=== PATIENT | female | born 1995 | race Caucasian/White ===

== ENCOUNTER 2017-01-21 21:10 | Emergency (ER) | payer OTHER ==
[2017-01-21] MEDS ORDERED: ONDANSETRON 4MG/2ML VIAL (J2405) As Ordered ONE (21:33)
[2017-01-21] MEDS ORDERED: MORPHINE 4 MG/ML 1ML SYRINGE As Ordered ONE (21:33)
[2017-01-21 21:38] LABS: MEAN CORPUSCULAR HGB CONC 34.3 g/dl (32.0-36.5); MEAN CORPUSCULAR VOLUME 84.4 fl (80.0-96.0); RED CELL DISTRIBUTION WIDTH 11.8 % (11.5-14.5); WHITE BLOOD COUNT 13.9 K/mm3 (4.0-10.0)
--- NOTE | 2017-01-21 23:06 | EDDOCDS ---
Nurse's Notes [facility] Name: Flavia Menon Age: 21 yrs Sex: Female : 1995 Arrival Date: 01/21/2017 Time: 21:10 Bed 10 Private MD: Diagnosis: Threatened Presentation: 01/21 21:15 Presenting complaint: Patient states: that she is approx 6 weeks and has been ms18 having lower abd pain and vaginal bleeding for 2 days. Risk factors: The patient reports no loss of conciousness prior to arrival. This patient has not had a hysterectomy. This patient has not begun menopause. Adult Sepsis Screening: The patient does not have new or worsening altered mentation. Patient has a respiratory rate of greater than or equal to 22 (1 point). Systolic blood pressure is greater than 100. Patient has a qSOFA score of 1- Negative Sepsis Screen. Suicide/Homicide risk assessment- the patient denies having any suicidal and/or homicidal ideations and does not present with any other emotional, behavioral or mental health complaints. Status: Patient is not a deputy sheriff court services or dependent. Transition of care: patient was not received from another setting of care. 21:15 Acuity: ELSA Level 3 ms18 21:15 Method Of Arrival: Walkin/Carried/Asstd ms18 21:23 Red Flag criteria, patient assessed and taken directly to a bed. ms18 Triage Assessment: 21:22 General: Appears distressed, obese, uncomfortable, Behavior is appropriate for age, ms18 cooperative, crying. Pain: Location: pelvis Pain currently is 9 out of 10 on a pain scale. Pt Declines HIV testing. Neurological: No deficits noted. Respiratory: Airway is patent Respiratory effort is even, unlabored. : Reports vaginal bleeding that is bright red with clots heavy flow. Derm: Skin is pink, warm & dry. 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 Vitamin Oral tab 1 tab once daily - PMHx: none; - PSHx: none; - Social history: Smoking status: Patient states former smoker of tobacco. No barriers to communication noted, The patient speaks fluent Swazi. - Family history: Not pertinent. - : The pt / caregiver states he / she is not on anticoagulants. Home medication list is obtained from the patient. - Exposure Risk Screening:: None identified. Screenin:29 Screening information is obtained from the patient. Fall risk: No risks identified. jmb Assistance ADL's: requires no assistance with activities of daily living. Abuse/DV Screen: The patient / caregiver reports he/she is: not in a situation that causes fear, pain or injury. Nutritional screening: No deficits noted. home support is adequate. 23:02 Advance Directives: Currently, there is no health care proxy. There is no active DNR jmb order. There is no living will. There is no Power of Telecommunications Consultant. Assessment: 21:29 General: Appears uncomfortable, Behavior is restless. Pain: Location: pelvis Pain jmb currently is 9 out of 10 on a pain scale. Neurological: Level of Consciousness is awake, alert, obeys commands, Oriented to person, place, time, Lumber Grader are equal bilaterally Speech is normal, Facial symmetry appears normal, Facial symmetry: tongue is midline. Cardiovascular: Capillary refill < 3 seconds Heart tones S1 S2 present Pulses are all present. Rhythm is regular. Respiratory: Airway is patent Respiratory effort is even, unlabored, Respiratory pattern is regular, symmetrical, Breath sounds are clear bilaterally. GI: Abdomen is gravid Bowel sounds present X 4 quads. Abd is soft X 4 quads. Derm: Skin is pink, warm & dry. Musculoskeletal: Range of motion intact in all extremities. 21:56 General: Appears in no apparent distress, Behavior is appropriate for age, cooperative. jmb Neurological: Level of Consciousness is awake, alert, obeys commands, Oriented to person, place, time. Respiratory: Airway is patent Respiratory effort is even, unlabored, Respiratory pattern is regular, symmetrical. 22:47 General: Appears in no apparent distress, Behavior is appropriate for age, cooperative. jmb Neurological: Level of Consciousness is awake, alert, obeys commands, Oriented to person, place, time. Respiratory: Airway is patent Respiratory effort is even, unlabored, Respiratory pattern is regular, symmetrical. 23:02 General: Patient instructed on discharge instructions. Patient asked if there were any jmb questions regarding discharge, patient stated no. IV discontinued per hospital policy. Patient signed discharge instructions. Patient discharged in stable condition.. Vital Signs: 21:13 lr2 21:21 BP 177 / 99; Pulse 92; Resp 22; Pulse Ox 100% ; Weight 118.84 kg; Height 5 ft. 5 in. ms18 (165.10 cm); Pain 9/10; 23:02 BP 168 / 80; Pulse 94; Resp 22; Temp 98.9(O); Pulse Ox 100% on R/A; Pain 0/10; jmb 21:21 Body Mass Index 43.60 (118.84 kg, 165.10 cm) ms18 21:13 UNABLE TO GET VITALS AT THIS TIME, PT IS WALKING AROUND AND DOES NOT THINK SHE CAN SIT lr2 DOWN TO BE ABLE TO GET VITALS Vitals: 21:12 Log In Time: January 21, 2017 at 21:10. RN notified that patient meets Red Flag lr2 criteria. ED Course: 21:11 Patient visited by Stacy Medina. lr2 21:11 Patient moved to Waiting lr2 21:12 Vijay Bustillos FNP [facility]. ke 21:12 Patient visited by Vijay Bustillos FNP. ke 21:12 Patient moved to 10 km 21:13 Patient visited by Vijay Bustillos FNP. ke 21:17 Triage Initiated ms18 21:29 The patient / caregiver is instructed regarding the plan of care and ED course. dovb 21:29 Complete Blood Count Sent. dovb 21:29 Hcg, Serum Quantitative Sent. dovb 21:29 Type & Screen Sent. dovb 21:29 Inserted saline lock: 20 gauge in right antecubital area and blood collected. The b patient tolerated the procedure well. Labs drawn. (by ED staff). Sent per order to lab. 21:30 Patient visited by Be Bolanos RN. cecilia 21:43 [facility] Payment Agreement was scanned into [employer] and attached to record. ks16 21:57 Patient visited by Be Bolanos RN. jmb 21:59 Patient name changed from Flavia\S\\S\Giamella\S\ to Flavia\S\ \S\Giamella. EDMS 22:23 Patient visited by Vijay Bustillos FNP. ke 22:48 Patient visited by Be Bolanos RN. jmb 22:48 Cesar Polanco MD is Referral Physician. ke 23:02 Discontinued lock intact, bleeding controlled, pressure dressing applied, No jmb redness/swelling at site. No procedures done that require assistance. Administered Medications: 21:37 Drug: NS 0.9% 1000 ml [sodium chloride 0.9 % intravenous solution] Route: IV; Rate: jmb bolus; Site: right antecubital; 21:37 Drug: Ondansetron 4 mg [ondansetron HCl 2 mg/mL intravenous solution (2 mL)] Route: jmb IVP; Site: right antecubital; 21:37 Drug: morphine 4 mg [morphine 4 mg/mL intravenous cartridge (1 mL)] Route: IVP; Site: jmb right antecubital; Order Results: Lab Order: Complete Blood Count; SPEC'M 01/21/17 21: Test: WHITE BLOOD COUNT; Value: 13.9; Range: 4.0-10.0; Abnormal: Above high normal; Units: K/mm3; Status: F Test: RED BLOOD COUNT; Value: 4.46; Range: 4.00-5.40; Units: M/mm3; Status: F Test: HEMOGLOBIN; Value: 12.9; Range: 12.0-16.0; Units: g/dl; Status: F Test: HEMATOCRIT; Value: 37.6; Range: 36.0-47.0; Units: %; Status: F Test: MEAN CORPUSCULAR VOLUME; Value: 84.4; Range: 80.0-96.0; Units: fl; Status: F Test: MEAN CORPUSCULAR HEMOGLOBIN; Value: 29.0; Range: 27.0-33.0; Units: pg; Status: F Test: MEAN CORPUSCULAR HGB CONC; Value: 34.3; Range: 32.0-36.5; Units: g/dl; Status: F Test: RED CELL DISTRIBUTION WIDTH; Value: 11.8; Range: 11.5-14.5; Units: %; Status: F Test: PLATELET COUNT, AUTOMATED; Value: 228; Range: 150-450; Units: k/mm3; Status: F Lab Order: Hcg, Serum Quantitative; SPEC01/21/17 21:26 Test: HCG, SERUM QUANTITATIVE; Value: 5133; Units: MIU/ML; Status: F Test Note: ; GESTATIONAL AGE APPROXIMATE HCG RANGE (MIU/ML) 0.2-1 WEEK 5-50 1-2 WEEKS 50-500 2-3 WEEKS 100-5,000 3-4 WEEKS 500-10,000 4-5 WEEKS 1,000-50,000 5-6 WEEKS 10,000-100,000 6-8 WEEKS 15,000-200,000 2-3 MONTHS 10,000-100,000 NON FEMALES LESS THAN 3.0 Patient samples may contain human heterophilic antibodies that could react with immunoassays to give falsely elevated or depressed results. This assay has been designed to minimize interference from heterophilic antibodies. Elevated hCG levels have also been associated with trophoblastic disease and nontrophoblastic neoplasms. The possibility of having these diseases should be considered before a diagnosis of is made. This test is not intended for use as a surrogate marker for aiding in the diagnosis or monitoring the treatment of cancer patients. Siemens [place] methodology. Lab Order: Type & Screen; SPEC'M 01/21/17 21:26 Test: BLOOD TYPE; Value: O POS; Status: F Test: AB SCREEN (INDIRECT AFSHIN)VIS; Value: NEGATIVE; Status: F Outcome: 22:48 Discharge ordered by Provider. ke 23:02 Discharge Assessment: Patient awake, alert and oriented x 3. No cognitive and/or jmb functional deficits noted. Patient verbalized understanding of disposition instructions. Patient awake and alert. obeys commands, Oriented to person, place and time. Patient verbalized understanding of disposition instructions. Patient has no functional deficits. patient administered narcotics - yes. Pt provided with safe discharge. The following High Risk Discharge criteria are identified: None. Discharged to home ambulatory, with family. Condition: stable. Discharge instructions given to patient, Instructed on discharge instructions, follow up and referral plans. medication usage, Demonstrated understanding of instructions, medications, Pt was receptive of discharge instructions/ teaching. Prescriptions given X 1. Ultrasound Study completed. Property sent home with patient. 23:05 Patient left the ED. cecilia Signatures: Dispatcher [employer] EDMS Kelley Hwang, RN RN kmg1 Vijay Bustillos, DOCUMENT CONTROL ASSISTANT DOCUMENT CONTROL ASSISTANT Be Berry RN RN jmb Smith, Mallory, RN RN ms18 Rosa Hyman, Reg Reg ks16 Stacy Medina2 MTDD
--- NOTE | 2017-01-21 23:06 | EDDOCDS ---
Physician Documentation [facility] Name: Flavia Menon Age: 21 yrs Sex: Female : 1995 Arrival Date: 01/21/2017 Time: 21:10 Bed 10 Private MD: Disposition: 01/21/17 22:48 Discharged to Home/Self Care. Impression: Threatened . - Condition is Stable. - Discharge Instructions: Threatened Miscarriage. - Prescriptions for Zofran 4 mg Oral Tablet - take 1 tablet by ORAL route 4 times per day As needed; 10 tablet. - Medication Reconciliation, Local Pharmacy Hours, Work Release Form - 4 day form. - Follow up: Cesar Polanco MD; When: 2 - 3 days; Reason: Continuance of care. - Problem is new. - Symptoms are unchanged. - Notes: repeat hcg in 2 days Historical: - Allergies: no known allergies; - Home Meds: 1. Vitamin Oral tab 1 tab once daily - PMHx: none; - PSHx: none; - Social history: Smoking status: Patient states former smoker of tobacco. No barriers to communication noted, The patient speaks fluent Dutch. - Family history: Not pertinent. - : The pt / caregiver states he / she is not on anticoagulants. Home medication list is obtained from the patient. - Exposure Risk Screening:: None identified. 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 5 in. (165.10 cm); Pain 9/10; 23:02 BP 168 / 80; Pulse 94; Resp 22; Temp 98.9(O); Pulse Ox 100% on R/A; Pain 0/10; jmb 21:21 Body Mass Index 43.60 (118.84 kg, 165.10 cm) ms18 21:13 UNABLE TO GET VITALS AT THIS TIME, PT IS WALKING AROUND AND DOES NOT THINK SHE CAN SIT lr2 DOWN TO BE ABLE TO GET VITALS MDM: 21:18 IV Saline Lock ordered. ke 21:18 Undress patient appropriately for examination ordered. ke 21:18 NS 0.9% 1000 ml IV at bolus once ordered. ke 21:18 Ondansetron 4 mg IVP once ordered. ke 21:18 morphine 4 mg IVP once ordered. ke 21:19 Complete Blood Count Ordered. EDMS 21:19 Hcg, Serum Quantitative Ordered. EDMS 21:19 US 1st trimester Ordered. EDMS 21:19 Type & Screen Ordered. EDMS 21:41 Financial registration complete. ks16 21:43 [facility] Payment Agreement was scanned into [employer] and attached to record. ks16 22:45 Complete Blood Count Reviewed. ke 22:45 Hcg, Serum Quantitative Reviewed. ke 22:45 Type & Screen Reviewed. ke Administered Medications: 21:37 Drug: NS 0.9% 1000 ml [sodium chloride 0.9 % intravenous solution] Route: IV; Rate: jmb bolus; Site: right antecubital; 21:37 Drug: Ondansetron 4 mg [ondansetron HCl 2 mg/mL intravenous solution (2 mL)] Route: jmb IVP; Site: right antecubital; 21:37 Drug: morphine 4 mg [morphine 4 mg/mL intravenous cartridge (1 mL)] Route: IVP; Site: jmb right antecubital; Signatures: Dispatcher [employer] EDMS Vijay Bustillos, SEMICONDUCTOR PACKAGES PLATEMAKER SEMICONDUCTOR PACKAGES PLATEMAKER Be Berry RN RN jmb Smith, Mallory, RN RN ms18 Rosa Hyman, Reg Reg ks16 The chart was reviewed and I authenticate all verbal orders and agree with the evaluation and treatment provided.Attachments: 21:43 [facility] Payment Agreement ks16 MTDD
--- NOTE | 2017-01-21 23:10 | REPUSA ---
CLINICAL HISTORY: , bleeding TECHNIQUE: OB ultrasound COMPARISON: No study for comparison is available at the time of interpretation. Uterus: Normal without masses. Gestational sac is within the lower uterine segment Endometrial cavity : Gestational sac with yolk sac, without pole. Gestational sac measurements equate to 6 week 4 day gestation. Ovaries: Right ovary is not seen. Left ovary is normal. Pelvic fluid: None. IMPRESSION: Gestational sac at 6 weeks 4 days, with yolk sac but without pole. Gestational sac is within the low uterine segment. This is most likely to represent a nonviable . Recommende d close clinical correlation with serial beta hCG's to establish viability, and follow-up ultrasound if beta hCG's are increasing.
--- NOTE | 2017-01-24 00:06 | EDDOCDS ---
Physician Documentation [facility] Name: Flavia Menon Age: 21 yrs Sex: Female : 1995 Arrival Date: 01/21/2017 Time: 21:10 Bed 10 Private MD: Disposition: 01/21/17 22:48 Discharged to Home/Self Care. Impression: Threatened . - Condition is Stable. - Discharge Instructions: Threatened Miscarriage. - Prescriptions for Zofran 4 mg Oral Tablet - take 1 tablet by ORAL route 4 times per day As needed; 10 tablet. - Medication Reconciliation, Local Pharmacy Hours, Work Release Form - 4 day form. - Follow up: Cesar Polanco MD; When: 2 - 3 days; Reason: Continuance of care. - Problem is new. - Symptoms are unchanged. - Notes: repeat hcg in 2 days Historical: - Allergies: no known allergies; - Home Meds: 1. Vitamin Oral tab 1 tab once daily - PMHx: none; - PSHx: none; - Social history: Smoking status: Patient states former smoker of tobacco. No barriers to communication noted, The patient speaks fluent Sudanese. - Family history: Not pertinent. - : The pt / caregiver states he / she is not on anticoagulants. Home medication list is obtained from the patient. - Exposure Risk Screening:: None identified. 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 5 in. (165.10 cm); Pain 9/10; 23:02 BP 168 / 80; Pulse 94; Resp 22; Temp 98.9(O); Pulse Ox 100% on R/A; Pain 0/10; jmb 21:21 Body Mass Index 43.60 (118.84 kg, 165.10 cm) ms18 21:13 UNABLE TO GET VITALS AT THIS TIME, PT IS WALKING AROUND AND DOES NOT THINK SHE CAN SIT lr2 DOWN TO BE ABLE TO GET VITALS MDM: 21:18 IV Saline Lock ordered. ke 21:18 Undress patient appropriately for examination ordered. ke 21:18 NS 0.9% 1000 ml IV at bolus once ordered. ke 21:18 Ondansetron 4 mg IVP once ordered. ke 21:18 morphine 4 mg IVP once ordered. ke 21:19 Complete Blood Count Ordered. EDMS 21:19 Hcg, Serum Quantitative Ordered. EDMS 21:19 US 1st trimester Ordered. EDMS 21:19 Type & Screen Ordered. EDMS 21:41 Financial registration complete. ks16 21:43 [facility] Payment Agreement was scanned into [employer] and attached to record. ks 22:45 Complete Blood Count Reviewed. ke 22:45 Hcg, Serum Quantitative Reviewed. ke 22:45 Type & Screen Reviewed. 01/22 08:30 T-Sheet-- Draft Copy was scanned into [employer] and attached to record. [facility] 01/23 16:44 Radiology Report was scanned into [employer] and attached to record. kf3 Administered Medications: 01/21 21:37 Drug: NS 0.9% 1000 ml [sodium chloride 0.9 % intravenous solution] Route: IV; Rate: jmb bolus; Site: right antecubital; 21:37 Drug: Ondansetron 4 mg [ondansetron HCl 2 mg/mL intravenous solution (2 mL)] Route: jmb IVP; Site: right antecubital; 21:37 Drug: morphine 4 mg [morphine 4 mg/mL intravenous cartridge (1 mL)] Route: IVP; Site: jmb right antecubital; Signatures: Dispatcher [employer] EDMS Vijay Bustillos, DICTATING MACHINE TYPIST DICTATING MACHINE TYPIST Vamsi Chao, Reg Reg kf3 Be Bolanos RN RN jmb Smith, Mallory, RN RN ms18 Rosa Hyman, Reg Reg ks16 Cely Ortiz The chart was reviewed and I authenticate all verbal orders and agree with the evaluation and treatment provided.Attachments: 21:43 [facility] Payment Agreement 01/22 08:30 T-Sheet-- Draft Copy [facility] Chart Complete MTDD
--- NOTE | 2017-01-24 00:06 | EDDOCDS ---
Nurse's Notes [facility] Name: Flavia Menon Age: 21 yrs Sex: Female : 1995 Arrival Date: 01/21/2017 Time: 21:10 Bed 10 Private MD: Diagnosis: Threatened Presentation: 01/21 21:15 Presenting complaint: Patient states: that she is approx 6 weeks and has been ms18 having lower abd pain and vaginal bleeding for 2 days. Risk factors: The patient reports no loss of conciousness prior to arrival. This patient has not had a hysterectomy. This patient has not begun menopause. Adult Sepsis Screening: The patient does not have new or worsening altered mentation. Patient has a respiratory rate of greater than or equal to 22 (1 point). Systolic blood pressure is greater than 100. Patient has a qSOFA score of 1- Negative Sepsis Screen. Suicide/Homicide risk assessment- the patient denies having any suicidal and/or homicidal ideations and does not present with any other emotional, behavioral or mental health complaints. Status: Patient is not a interlibrary loan services librarian or dependent. Transition of care: patient was not received from another setting of care. 21:15 Acuity: ELSA Level 3 ms18 21:15 Method Of Arrival: Walkin/Carried/Asstd ms18 21:23 Red Flag criteria, patient assessed and taken directly to a bed. ms18 Triage Assessment: 21:22 General: Appears distressed, obese, uncomfortable, Behavior is appropriate for age, ms18 cooperative, crying. Pain: Location: pelvis Pain currently is 9 out of 10 on a pain scale. Pt Declines HIV testing. Neurological: No deficits noted. Respiratory: Airway is patent Respiratory effort is even, unlabored. : Reports vaginal bleeding that is bright red with clots heavy flow. Derm: Skin is pink, warm & dry. WARPMAN: 21:21 LMP 10/2016 ms18 Historical: - Allergies: no known allergies; - Home Meds: 1. Vitamin Oral tab 1 tab once daily - PMHx: none; - PSHx: none; - Social history: Smoking status: Patient states former smoker of tobacco. No barriers to communication noted, The patient speaks fluent Azerbaijani. - Family history: Not pertinent. - : The pt / caregiver states he / she is not on anticoagulants. Home medication list is obtained from the patient. - Exposure Risk Screening:: None identified. Screenin:29 Screening information is obtained from the patient. Fall risk: No risks identified. jmb Assistance ADL's: requires no assistance with activities of daily living. Abuse/DV Screen: The patient / caregiver reports he/she is: not in a situation that causes fear, pain or injury. Nutritional screening: No deficits noted. home support is adequate. 23:02 Advance Directives: Currently, there is no health care proxy. There is no active DNR jmb order. There is no living will. There is no Power of Rn Concurrent Review. Assessment: 21:29 General: Appears uncomfortable, Behavior is restless. Pain: Location: pelvis Pain jmb currently is 9 out of 10 on a pain scale. Neurological: Level of Consciousness is awake, alert, obeys commands, Oriented to person, place, time, Wood Tank Builder are equal bilaterally Speech is normal, Facial symmetry appears normal, Facial symmetry: tongue is midline. Cardiovascular: Capillary refill < 3 seconds Heart tones S1 S2 present Pulses are all present. Rhythm is regular. Respiratory: Airway is patent Respiratory effort is even, unlabored, Respiratory pattern is regular, symmetrical, Breath sounds are clear bilaterally. GI: Abdomen is gravid Bowel sounds present X 4 quads. Abd is soft X 4 quads. Derm: Skin is pink, warm & dry. Musculoskeletal: Range of motion intact in all extremities. 21:56 General: Appears in no apparent distress, Behavior is appropriate for age, cooperative. jmb Neurological: Level of Consciousness is awake, alert, obeys commands, Oriented to person, place, time. Respiratory: Airway is patent Respiratory effort is even, unlabored, Respiratory pattern is regular, symmetrical. 22:47 General: Appears in no apparent distress, Behavior is appropriate for age, cooperative. jmb Neurological: Level of Consciousness is awake, alert, obeys commands, Oriented to person, place, time. Respiratory: Airway is patent Respiratory effort is even, unlabored, Respiratory pattern is regular, symmetrical. 23:02 General: Patient instructed on discharge instructions. Patient asked if there were any jmb questions regarding discharge, patient stated no. IV discontinued per hospital policy. Patient signed discharge instructions. Patient discharged in stable condition.. Vital Signs: 21:13 lr2 21:21 BP 177 / 99; Pulse 92; Resp 22; Pulse Ox 100% ; Weight 118.84 kg; Height 5 ft. 5 in. ms18 (165.10 cm); Pain 9/10; 23:02 BP 168 / 80; Pulse 94; Resp 22; Temp 98.9(O); Pulse Ox 100% on R/A; Pain 0/10; jmb 21:21 Body Mass Index 43.60 (118.84 kg, 165.10 cm) ms18 21:13 UNABLE TO GET VITALS AT THIS TIME, PT IS WALKING AROUND AND DOES NOT THINK SHE CAN SIT lr2 DOWN TO BE ABLE TO GET VITALS Vitals: 21:12 Log In Time: January 21, 2017 at 21:10. RN notified that patient meets Red Flag lr2 criteria. ED Course: 21:11 Patient visited by Stacy Medina. lr2 21:11 Patient moved to Waiting lr2 21:12 [facility]ill[facility] ke 21:12 Patient visited by Vijay Bustillos FNP. ke 21:12 Patient moved to 10 km 21:13 Patient visited by Vijay Bustillos FNP. ke 21:17 Triage Initiated ms18 21:29 The patient / caregiver is instructed regarding the plan of care and ED course. dovb 21:29 Complete Blood Count Sent. dovb 21:29 Hcg, Serum Quantitative Sent. dovb 21:29 Type & Screen Sent. dovb 21:29 Inserted saline lock: 20 gauge in right antecubital area and blood collected. The b patient tolerated the procedure well. Labs drawn. (by ED staff). Sent per order to lab. 21:30 Patient visited by Be Bolanos RN. cecilia 21:43 [facility] Payment Agreement was scanned into [employer] and attached to record. ks16 21:57 Patient visited by Be Bolanos RN. jmb 21:59 Patient name changed from Flavia\S\\S\Giamella\S\ to Flavia\S\ \S\Giamella. EDMS 22:23 Patient visited by Vijay Bustillos FNP. ke 22:48 Patient visited by Be Bolanos RN. jmb 22:48 Cesar Polanco MD is Referral Physician. ke 23:02 Discontinued lock intact, bleeding controlled, pressure dressing applied, No jmb redness/swelling at site. No procedures done that require assistance. 23:23 US 1st trimester Returned. EDHI 01/22 08:30 T-Sheet-- Draft Copy was scanned into [employer] and attached to record. [facility] 01/23 16:44 Radiology Report was scanned into [employer] and attached to record. kf3 Administered Medications: 01/21 21:37 Drug: NS 0.9% 1000 ml [sodium chloride 0.9 % intravenous solution] Route: IV; Rate: jmb bolus; Site: right antecubital; 21:37 Drug: Ondansetron 4 mg [ondansetron HCl 2 mg/mL intravenous solution (2 mL)] Route: jmb IVP; Site: right antecubital; 21:37 Drug: morphine 4 mg [morphine 4 mg/mL intravenous cartridge (1 mL)] Route: IVP; Site: b right antecubital; Order Results: Lab Order: Complete Blood Count; SPEC'M 01/21/17 21:26 Test: WHITE BLOOD COUNT; Value: 13.9; Range: 4.0-10.0; Abnormal: Above high normal; Units: K/mm3; Status: F Test: RED BLOOD COUNT; Value: 4.46; Range: 4.00-5.40; Units: M/mm3; Status: F Test: HEMOGLOBIN; Value: 12.9; Range: 12.0-16.0; Units: g/dl; Status: F Test: HEMATOCRIT; Value: 37.6; Range: 36.0-47.0; Units: %; Status: F Test: MEAN CORPUSCULAR VOLUME; Value: 84.4; Range: 80.0-96.0; Units: fl; Status: F Test: MEAN CORPUSCULAR HEMOGLOBIN; Value: 29.0; Range: 27.0-33.0; Units: pg; Status: F Test: MEAN CORPUSCULAR HGB CONC; Value: 34.3; Range: 32.0-36.5; Units: g/dl; Status: F Test: RED CELL DISTRIBUTION WIDTH; Value: 11.8; Range: 11.5-14.5; Units: %; Status: F Test: PLATELET COUNT, AUTOMATED; Value: 228; Range: 150-450; Units: k/mm3; Status: F Lab Order: Hcg, Serum Quantitative; SPEC'M 01/21/17 21:26 Test: HCG, SERUM QUANTITATIVE; Value: 5133; Units: MIU/ML; Status: F Test Note: ; GESTATIONAL AGE APPROXIMATE HCG RANGE (MIU/ML) 0.2-1 WEEK 5-50 1-2 WEEKS 50-500 2-3 WEEKS 100-5,000 3-4 WEEKS 500-10,000 4-5 WEEKS 1,000-50,000 5-6 WEEKS 10,000-100,000 6-8 WEEKS 15,000-200,000 2-3 MONTHS 10,000-100,000 NON FEMALES LESS THAN 3.0 Patient samples may contain human heterophilic antibodies that could react with immunoassays to give falsely elevated or depressed results. This assay has been designed to minimize interference from heterophilic antibodies. Elevated hCG levels have also been associated with trophoblastic disease and nontrophoblastic neoplasms. The possibility of having these diseases should be considered before a diagnosis of is made. This test is not intended for use as a surrogate marker for aiding in the diagnosis or monitoring the treatment of cancer patients. Siemens Walnut methodology. Lab Order: Type & Screen; SPEC'M 01/21/17 21:26 Test: BLOOD TYPE; Value: O POS; Status: F Test: AB SCREEN (INDIRECT AFSHIN)VIS; Value: NEGATIVE; Status: F Radiology Order: US 1st trimester Test: US 1st trimester REASON FOR EXAMINATION: Bleeding; ; CLINICAL HISTORY: , bleeding; ; TECHNIQUE: OB ultrasound; ; COMPARISON: No study for comparison is available at the time of interpretation.; ; Uterus: Normal without masses. Gestational sac is within the lower uterine segment; Endometrial cavity : Gestational sac with yolk sac, without pole. Gestational sac measurements; equate to 6 week 4 day gestation.; Ovaries: Right ovary is not seen. Left ovary is normal.; Pelvic fluid: None.; ; IMPRESSION: Gestational sac at 6 weeks 4 days, with yolk sac but without pole. Gestational sac; is within the low uterine segment. This is most likely to represent a nonviable . Recommende; d close clinical correlation with serial beta hCG's to establish viability, and follow-up ultrasound; if beta hCG's are increasing.; ; Outcome: 22:48 Discharge ordered by Provider. alexandra 23:02 Discharge Assessment: Patient awake, alert and oriented x 3. No cognitive and/or jmb functional deficits noted. Patient verbalized understanding of disposition instructions. Patient awake and alert. obeys commands, Oriented to person, place and time. Patient verbalized understanding of disposition instructions. Patient has no functional deficits. patient administered narcotics - yes. Pt provided with safe discharge. The following High Risk Discharge criteria are identified: None. Discharged to home ambulatory, with family. Condition: stable. Discharge instructions given to patient, Instructed on discharge instructions, follow up and referral plans. medication usage, Demonstrated understanding of instructions, medications, Pt was receptive of discharge instructions/ teaching. Prescriptions given X 1. Ultrasound Study completed. Property sent home with patient. 23:05 Patient left the ED. cecilia Signatures: Dispatcher [employer] EDMS Kelley Hwang, RN RN kmg1 Vijay Bustillos, FINE CRAFT ARTIST FINE CRAFT ARTIST Vamsi Chao, Reg Reg kf3 Be Bolanos RN RN jmb Smith, Mallory, RN RN ms18 Rosa Hyman, Reg Reg ks16 Cely Ortiz Laura lr2 Chart Complete MTDD
--- NOTE | 2017-01-24 00:06 | EDDOCDS ---
Physician Documentation [facility] Name: Flavia Menon Age: 21 yrs Sex: Female : 1995 Arrival Date: 01/21/2017 Time: 21:10 Bed 10 Private MD: Disposition: 01/21/17 22:48 Discharged to Home/Self Care. Impression: Threatened . - Condition is Stable. - Discharge Instructions: Threatened Miscarriage. - Prescriptions for Zofran 4 mg Oral Tablet - take 1 tablet by ORAL route 4 times per day As needed; 10 tablet. - Medication Reconciliation, Local Pharmacy Hours, Work Release Form - 4 day form. - Follow up: Cesar Polanco MD; When: 2 - 3 days; Reason: Continuance of care. - Problem is new. - Symptoms are unchanged. - Notes: repeat hcg in 2 days Historical: - Allergies: no known allergies; - Home Meds: 1. Vitamin Oral tab 1 tab once daily - PMHx: none; - PSHx: none; - Social history: Smoking status: Patient states former smoker of tobacco. No barriers to communication noted, The patient speaks fluent Malawian. - Family history: Not pertinent. - : The pt / caregiver states he / she is not on anticoagulants. Home medication list is obtained from the patient. - Exposure Risk Screening:: None identified. INSPECTOR RAW QUARTZ: 01/21 21:21 LMP 10/2016 ms18 Vital Signs: 21:13 lr2 21:21 BP 177 / 99; Pulse 92; Resp 22; Pulse Ox 100% ; Weight 118.84 kg / 262 lbs; Height 5 ms18 ft. 5 in. (165.10 cm); Pain 9/10; 23:02 BP 168 / 80; Pulse 94; Resp 22; Temp 98.9(O); Pulse Ox 100% on R/A; Pain 0/10; jmb 21:21 Body Mass Index 43.60 (118.84 kg, 165.10 cm) ms18 21:13 UNABLE TO GET VITALS AT THIS TIME, PT IS WALKING AROUND AND DOES NOT THINK SHE CAN SIT lr2 DOWN TO BE ABLE TO GET VITALS MDM: 21:18 IV Saline Lock ordered. ke 21:18 Undress patient appropriately for examination ordered. ke 21:18 NS 0.9% 1000 ml IV at bolus once ordered. ke 21:18 Ondansetron 4 mg IVP once ordered. ke 21:18 morphine 4 mg IVP once ordered. ke 21:19 Complete Blood Count Ordered. EDMS 21:19 Hcg, Serum Quantitative Ordered. EDMS 21:19 US 1st trimester Ordered. EDMS 21:19 Type & Screen Ordered. EDMS 21:41 Financial registration complete. [email or web address] 21:43 [facility] [place] Agreement was scanned into [employer] and attached to record. ks 22:45 Complete Blood Count Reviewed. ke 22:45 Hcg, Serum Quantitative Reviewed. ke 22:45 Type & Screen Reviewed. 01/22 08:30 T-Sheet-- Draft Copy was scanned into [employer] and attached to record. [facility] 01/23 16:44 Radiology Report was scanned into [employer] and attached to record. kf3 Administered Medications: 01/21 21:37 Drug: NS 0.9% 1000 ml [sodium chloride 0.9 % intravenous solution] Route: IV; Rate: jmb bolus; Site: right antecubital; 21:37 Drug: Ondansetron 4 mg [ondansetron HCl 2 mg/mL intravenous solution (2 mL)] Route: jmb IVP; Site: right antecubital; 21:37 Drug: morphine 4 mg [morphine 4 mg/mL intravenous cartridge (1 mL)] Route: IVP; Site: jmb right antecubital; Signatures: Dispatcher [employer] EDMS Vijay Bustillos, TANK TRUCK MILK RECEIVER TANK TRUCK MILK RECEIVER Vamsi Chao, Reg Reg kf3 Be Bolanos RN RN jmb Smith, Mallory, RN RN ms18 Rosa Hyman, Reg Reg ks16 Cely Ortiz The chart was reviewed and I authenticate all verbal orders and agree with the evaluation and treatment provided.Attachments: 21:43 [facility] Payment Agreement 01/22 08:30 T-Sheet-- Draft Copy [facility] Chart Complete MTDD
[2017-01-25] MEDS ORDERED: PRENTAB55 PO (14:44)
== END 2017-01-21 23:05 | disposition home or self-care (01) ==
LOC: M ED 21:10
DX: O20.0 Threatened abortion (principal); Z87.891 Personal history of nicotine dependence; Z79.899 Other long term (current) drug therapy

== ENCOUNTER → 2017-01-26 | Day surgery (SDC) | payer OTHER ==
[~2017-01-26] VITALS: Ht 165.1 cm; Wt 114.8 kg
[~2017-01-26] MED LIST: MIDAZOLAM INJ 2 MG/2 ML VIAL (J2250) As Ordered ONE; PRENTAB55 PO; fentaNYL 100 MCG/2 ML INJECTION (J3010) As Ordered ONE
[2017-01-26 15:50] VITALS: BP 141/86
--- NOTE | 2017-01-27 07:37 | RO ---
DATE OF PROCEDURE: 01/26/2017 PREPROCEDURE DIAGNOSIS: Incomplete . POSTPROCEDURE DIAGNOSIS: Incomplete . PROCEDURE: Dilation, evacuation and curettage. SURGEON: Dr. Cesar Polanco OPEN SHANK COVERER: ANESTHESIA: Spinal. ESTIMATED BLOOD LOSS: Minimal. URINE OUTPUT: 500 mL. FINDINGS: Minimal amount of products of conception. Midline mildly enlarged uterus. OPERATIVE SUMMARY: The patient was taken to the operating room where spinal anesthesia was induced. She was prepped and draped in sterile fashion in a dorsal lithotomy position. The bladder was emptied with a catheter. A speculum was placed in the vagina. The anterior lip of the cervix was grasped with a tenaculum. The cervix was dilated with tapered dilators. A #9 mm suction curette was placed through the internal os. Suction device was activiated. Curette was gently rotated until minimal amounts of products of conception were noted to come through the suction tube. A sharp curettage was performed. The uterine cavity was deemed to be empty. All instruments were removed. Sponge and instrument counts were correct.
== END | disposition home or self-care (01) ==
LOC: M SDC 11:08
PROVIDERS: ATTEND Specialist
DX: O02.1 Missed abortion (principal); F17.290 Nicotine dependence, other tobacco product, uncomplicated; F41.9 Anxiety disorder, unspecified

== ENCOUNTER → 2017-08-03 | Outpatient (CLI) | payer MEDICAID, OTHER ==
[~2017-08-03] MED LIST changes: -MIDAZOLAM INJ 2 MG/2 ML VIAL (J2250) As Ordered ONE; -fentaNYL 100 MCG/2 ML INJECTION (J3010) As Ordered ONE
[2017-08-03 14:11] LABS: BASO % 0.4 % (0.0-1.0); EOS # 0.1 K/mm3 (0.0-0.50); EOS % 1.9 % (0.0-3.0); LARGE UNSTAINED CELL # 0.1 K/mm3 (0.0-0.4); LARGE UNSTAINED CELL % 0.8 % (0.0-4.0); LYMPH # 1.5 K/mm3 (1.5-6.5); LYMPH % 23.8 % (24.0-44.0); MEAN CORPUSCULAR HEMOGLOBIN 29.2 pg (27.0-33.0); MEAN CORPUSCULAR HGB CONC 33.7 g/dl (32.0-36.5); MEAN CORPUSCULAR VOLUME 86.5 fl (80.0-96.0); MONO # 0.3 K/mm3 (0.0-0.8); MONO % 5.2 % (0.0-5.0); NEUTROPHILS # 4.1 K/mm3 (1.8-7.7); PLATELET COUNT, AUTOMATED 183 k/mm3 (150-450); RED CELL DISTRIBUTION WIDTH 12.4 % (11.5-14.5)
[2017-08-04 10:48] LABS: HBsAg Prenatal NEGATIVE (NEGATIVE)
== END ==
LOC: M SMT 09:35
PROVIDERS: ATTEND Specialist
DX: Z34.81 Encounter for supervision of other normal pregnancy, first trimester (principal); Z3A.00 Weeks of gestation of pregnancy not specified

== ENCOUNTER → 2017-10-09 | Outpatient (CLI) | payer OTHER ==
--- NOTE | 2017-10-09 09:45 | REP ---
Clinical: Anatomical evaluation. Comparison: None. Findings: Examination demonstrates a single live intrauterine in cephalic presentation. motion is identified by technologist. Placenta is noted fundal and grade zero without evidence for placenta previa or abruption. Amniotic fluid volume is normal. Cervix measures 3.5 cm in length and appears closed. No evidence for nuchal cord. Gestational age by LMP 18 weeks 6 days with MARZENA 03/06/2018 . Gestational age by current measurements 18 weeks 5 days with MARZENA 03/07/2018 . FHR equals 153 beats per minute. BPD 4.1 cm 18 weeks 2 days HC 16.1 cm 18 weeks 6 days AC 13.5 cm 18 weeks 6 days FL 2.8 cm 18 weeks 4 days HL 2.7 cm 18 weeks 4 days HC/AC ratio 1.20 Estimated weight 256 grams ( 42nd percentile). Anatomical assessment demonstrates normal structures including cranium, choroid plexus, cavum, cerebellum/posterior fossa, facial features, lungs, diaphragm, stomach, cord insertion/three-vessel cord, bladder, and extremities. Limited evaluation of the four-chamber heart/ventricular outflow tracts, kidneys and spine may warrant reevaluation and follow-up. Impression: Single live intrauterine in cephalic presentation demonstrating appropriate interval growth. Incomplete evaluation of the heart/ventricle outflow tracts, kidneys and spine may warrant reevaluation. Signed by Cesar Anthony MD 10/09/2017 09:36 A
== END ==
LOC: M RAD 08:43
PROVIDERS: ATTEND Specialist
DX: Z34.82 Encounter for supervision of other normal pregnancy, second trimester (principal); Z3A.18 18 weeks gestation of pregnancy

== ENCOUNTER → 2017-10-27 | Outpatient (CLI) | payer OTHER ==
--- NOTE | 2017-10-27 13:45 | REP ---
Clinical: Anatomical evaluation. Comparison: 10/09/2017 . Findings: Examination demonstrates a single live intrauterine in cephalic presentation. motion is identified by technologist. Placenta is noted posterior fundal and grade zero without evidence for placenta previa or abruption. Amniotic fluid volume is normal. Cervix measures 3.6 cm in length and appears closed. No evidence for nuchal cord. Gestational age by LMP 21 weeks 3 days with MARZENA 03/06/2018 . Gestational age by current measurements 21 weeks 2 days with MARZENA 03/07/2018 . FHR equals 152 beats per minute. Estimated weight 429 grams ( 48th percentile). Anatomical assessment demonstrates normal structures including cranium, choroid plexus, cavum, cerebellum/posterior fossa, facial features, lungs, four-chamber heart/ventricular outflow tracts, diaphragm, stomach, cord insertion/three-vessel cord, kidneys/bladder, spine, and extremities. Impression: Single live intrauterine in cephalic presentation demonstrating appropriate interval growth. Anatomical assessment is complete and normal. No gross abnormalities are identified. Signed by Cesar Anthony MD 10/27/2017 01:36 P
== END ==
LOC: M RAD 12:00
PROVIDERS: ATTEND Obstetrics & Gynecology
DX: Z36.2 Encounter for other antenatal screening follow-up (principal)

== ENCOUNTER 2017-11-29 22:41 | Outpatient (CLI) | payer OTHER | END 2017-11-29 23:55 | disposition home or self-care (01) | LOC: M LDO 22:41 | DX: O26.852 Spotting complicating pregnancy, second trimester (principal); Z3A.26 26 weeks gestation of pregnancy ==

== ENCOUNTER 2018-01-22 12:20 | Outpatient (CLI) | payer OTHER ==
[2018-01-22 13:25] LABS: HEMATOCRIT 35.8 % (36.0-47.0); HEMOGLOBIN 12.2 g/dl (12.0-16.0); MEAN CORPUSCULAR HEMOGLOBIN 29.5 pg (27.0-33.0); MEAN CORPUSCULAR HGB CONC 34.1 g/dl (32.0-36.5); MEAN CORPUSCULAR VOLUME 86.7 fl (80.0-96.0); PLATELET COUNT, AUTOMATED 172 10^3/uL (150-450); RED BLOOD COUNT 4.13 10^6/uL (4.00-5.40); RED CELL DISTRIBUTION WIDTH 12.8 % (11.5-14.5); WHITE BLOOD COUNT 11.1 10^3/uL (4.0-10.0)
[2018-01-22 13:37] LABS: APPEARANCE, URINE CLEAR (CLEAR); BACTERIA, URINE AUTO 1+ (NEGATIVE); BILIRUBIN, URINE AUTO NEGATIVE (NEGATIVE); BLOOD, URINE BLOOD NEGATIVE (NEGATIVE); COLOR, URINE STRAW (YELLOW); GLUCOSE, URINE (UA) AUTO NEGATIVE (NEGATIVE); KETONE, URINE AUTO NEGATIVE (NEGATIVE); LEUKOCYTE ESTERASE, URINE AUTO NEGATIVE (NEGATIVE); NITRITE, URINE AUTO NEGATIVE (NEGATIVE); PROTEIN, URINE AUTO NEGATIVE (NEGATIVE); RBC, URINE AUTO 1 /HPF (0-3); SPECIFIC GRAVITY URINE AUTO 1.003 (1.002-1.035); SQUAMOUS EPITHELIAL CELL UR AU 1 /HPF (0-6); UROBILINOGEN, URINE AUTO 0.2 mg/dL (0.0-2.0); WBC, URINE AUTO 1 /HPF (0-3)
[2018-01-22 13:49] LABS: CREATININE,RANDOM URINE 22.1 MG/DL
[2018-01-22 13:49] LABS: TOTAL PROTEIN,RANDOM URINE < 5.0 MG/DL (0.0-12.0)
[2018-01-22 13:55] LABS: ALT/SGPT 19 U/L (12-78); AST/SGOT 12 U/L (7-37); BILIRUBIN,TOTAL 0.2 MG/DL (0.2-1.0); CREATININE FOR GFR 0.57 MG/DL (0.55-1.30); GLOMERULAR FILTRATION RATE > 60.0 (>60); LDH LACTATE DEHYDROGENASE 194 U/L (84-246); URIC ACID 4.8 MG/DL (2.6-6.0)
== END 2018-01-22 15:00 | disposition home or self-care (01) ==
LOC: M LDO 12:20
DX: O36.8130 Decreased fetal movements, third trimester, not applicable or unspecified (principal); W01.198A Fall on same level from slipping, tripping and stumbling with subsequent striking against other object, initial encounter; Y92.89 Other specified places as the place of occurrence of the external cause; Y93.89 Activity, other specified; Y99.8 Other external cause status; Z3A.33 33 weeks gestation of pregnancy
CPT/HCPCS: 76815

== ENCOUNTER → 2018-02-09 | Outpatient (REF) | payer OTHER, MEDICAID | LOC: M LAB REF 17:25 | DX: Z34.83 Encounter for supervision of other normal pregnancy, third trimester (principal) | CPT/HCPCS: 87186 ==

== ENCOUNTER → 2018-02-14 | Outpatient (CLI) | payer OTHER, MEDICAID ==
[2018-02-14 16:12] LABS: HEMATOCRIT 36.8 % (36.0-47.0); HEMOGLOBIN 12.5 g/dl (12.0-16.0); MEAN CORPUSCULAR HEMOGLOBIN 29.7 pg (27.0-33.0); MEAN CORPUSCULAR VOLUME 87.4 fl (80.0-96.0); PLATELET COUNT, AUTOMATED 157 10^3/uL (150-450); RED BLOOD COUNT 4.21 10^6/uL (4.00-5.40); WHITE BLOOD COUNT 10.4 10^3/uL (4.0-10.0)
[2018-02-14 17:42] LABS: ALT/SGPT 24 U/L (12-78); AST/SGOT 11 U/L (7-37); BILIRUBIN,TOTAL 0.2 MG/DL (0.2-1.0); CREATININE FOR GFR 0.68 MG/DL (0.55-1.30); GLOMERULAR FILTRATION RATE > 60.0 (>60); LDH LACTATE DEHYDROGENASE 212 U/L (84-246); URIC ACID 5.2 MG/DL (2.6-6.0)
[2018-02-14 17:46] LABS: TOTAL PROTEIN,RANDOM URINE 6.4 MG/DL (0.0-12.0)
[2018-02-14 17:46] LABS: CREATININE,RANDOM URINE 28.1 MG/DL
== END ==
LOC: M LAB 15:14
DX: O10.013 Pre-existing essential hypertension complicating pregnancy, third trimester (principal)
CPT/HCPCS: 76815

== ENCOUNTER 2018-02-20 18:06 | Inpatient (IN) | payer OTHER, MEDICAID ==
[2018-02-20 20:51] LABS: HEMATOCRIT 37.3 % (36.0-47.0); HEMOGLOBIN 12.6 g/dl (12.0-16.0); MEAN CORPUSCULAR HEMOGLOBIN 29.4 pg (27.0-33.0); MEAN CORPUSCULAR HGB CONC 33.8 g/dl (32.0-36.5); MEAN CORPUSCULAR VOLUME 86.9 fl (80.0-96.0); PLATELET COUNT, AUTOMATED 166 10^3/uL (150-450); RED BLOOD COUNT 4.29 10^6/uL (4.00-5.40); RED CELL DISTRIBUTION WIDTH 13.1 % (11.5-14.5); WHITE BLOOD COUNT 10.8 10^3/uL (4.0-10.0)
[2018-02-20 21:06] LABS: TOTAL PROTEIN,RANDOM URINE 29.4 MG/DL (0.0-12.0)
[2018-02-20 21:16] LABS: ALT/SGPT 22 U/L (12-78); AST/SGOT 14 U/L (7-37); BILIRUBIN,TOTAL 0.2 MG/DL (0.2-1.0); CREATININE FOR GFR 0.72 MG/DL (0.55-1.30); GLOMERULAR FILTRATION RATE > 60.0 (>60); LDH LACTATE DEHYDROGENASE 249 U/L (84-246); URIC ACID 5.7 MG/DL (2.6-6.0)
[2018-02-20] MEDS: miSOPROStol 50 MCG 1/2 TAB (S0191) SL (22:06)
[2018-02-21] MEDS: miSOPROStol 50 MCG 1/2 TAB (S0191) SL ×3 (02:00→12:48)
[2018-02-21] MEDS: miSOPROStol 100 MCG TAB (S0191) SL ×2 (17:24→22:00)
[2018-02-21] MEDS ORDERED: hydrOXYzine 50 MG TAB PO (21:00)
[2018-02-21] MEDS: OXYTOCIN DRIP 30 UNITS in APPROPRIATE DILUENT 1 EA IV (21:40)
[2018-02-21] MEDS: LR 1,000 ML IV (21:40)
[2018-02-22] MEDS: miSOPROStol 100 MCG TAB (S0191) SL ×2 (02:00→06:00)
[2018-02-22] MEDS: LR 1,000 ML IV ×4 (05:23→15:42)
[2018-02-22 09:00] LABS: HEMATOCRIT 37.4 % (36.0-47.0); HEMOGLOBIN 12.5 g/dl (12.0-16.0); MEAN CORPUSCULAR HEMOGLOBIN 28.7 pg (27.0-33.0); MEAN CORPUSCULAR HGB CONC 33.4 g/dl (32.0-36.5); MEAN CORPUSCULAR VOLUME 85.8 fl (80.0-96.0); PLATELET COUNT, AUTOMATED 170 10^3/uL (150-450); RED BLOOD COUNT 4.36 10^6/uL (4.00-5.40); RED CELL DISTRIBUTION WIDTH 13.2 % (11.5-14.5); WHITE BLOOD COUNT 10.4 10^3/uL (4.0-10.0)
[2018-02-22] MEDS: AZITHROMYCIN INJ 500 MG, VIAL MATE ADAPTER 1 EACH in D5W 250 ML IV (09:00)
[2018-02-22] MEDS: DOCUSATE SODIUM 100 MG CAP PO ×2 (09:00→19:53)
[2018-02-22] MEDS: BICITRA 30ML SOLN UDC PO (09:17)
[2018-02-22] MEDS: LACTATED RINGER'S 1000 ML IV (09:17)
[2018-02-22] MEDS ORDERED: MORPHINE PRES-FREE INJ 10 MG/10 ML VIAL (J2274) As Ordered (09:18)
[2018-02-22] MEDS ORDERED: OXYTOCIN INJ 10 UNITS/ML VIAL (J2590) As Ordered ×3 (09:20)
[2018-02-22] MEDS ORDERED: PHENYLephrine HCL 500 MCG/5 ML (100MCG/ML) SYRINGE (J2370) As Ordered (09:57)
[2018-02-22] MEDS ORDERED: ePHEDrine SULFATE 25 MG/5 ML(5MG/ML) SYRINGE As Ordered (09:57)
[2018-02-22] MEDS ORDERED: ONDANSETRON 4MG/2ML VIAL (J2405) As Ordered (09:59)
[2018-02-22] MEDS: OXYTOCIN DRIP 30 UNITS in APPROPRIATE DILUENT 1 EA IV (11:05)
[2018-02-22] MEDS ORDERED: OXYTOCIN 30 UNITS IN 0.9% NaCl 500ML IV BAG (J2590) As Ordered (11:07)
[2018-02-22] MEDS ORDERED: ONDANSETRON 4MG/2ML VIAL (J2405) IV ×2 (11:15→11:30)
[2018-02-22] MEDS ORDERED: PERCOCET 5MG/325MG TAB PO (11:15)
[2018-02-22] MEDS ORDERED: PROMETHAZINE 25 MG TAB PO (11:15)
[2018-02-22] MEDS ORDERED: fentaNYL 100 MCG/2 ML INJECTION (J3010) IV (11:30)
[2018-02-22] MEDS ORDERED: KETOROLAC 30 MG/ML VIAL (J1885) IV (11:30)
[2018-02-22] MEDS ORDERED: METOCLOPRAMIDE INJ 10MG/2ML VIAL (J2765) IV (11:30)
[2018-02-22] MEDS: MEASLES,MUMPS,RUBELLA VACCINE INJ (MMR-II) (90707) SC (13:10)
[2018-02-22] MEDS: RHOGAM 300 MCG (1500 IU) INJ (J2790) IM (13:10)
[2018-02-22] MEDS: diphenhydrAMINE 25 MG CAP PO (13:49)
[2018-02-22] MEDS: KETOROLAC 30 MG/ML VIAL (J1885) IV ×2 (18:04→23:27)
[2018-02-23] MEDS: KETOROLAC 30 MG/ML VIAL (J1885) IV (05:56)
[2018-02-23 07:20] LABS: HEMOGLOBIN 10.7 g/dl (12.0-15.5); MEAN CORPUSCULAR HEMOGLOBIN 29.5 pg (27.0-33.0); MEAN CORPUSCULAR HGB CONC 33.4 g/dl (32.0-36.5); MEAN CORPUSCULAR VOLUME 88.2 fl (80.0-96.0); PLATELET COUNT, AUTOMATED 124 10^3/uL (150-450); RED BLOOD COUNT 3.63 10^6/uL (4.00-5.40); RED CELL DISTRIBUTION WIDTH 13.3 % (11.5-14.5); WHITE BLOOD COUNT 8.1 10^3/uL (4.0-10.0)
[2018-02-23] MEDS: PRENATAL VITAMINS CHEWABLE TABLET PO (08:46)
[2018-02-23] MEDS: DOCUSATE SODIUM 100 MG CAP PO ×2 (08:46→21:36)
[2018-02-23] MEDS: PERCOCET 5MG/325MG TAB PO (11:05)
[2018-02-23] MEDS: IBUPROFEN 800 MG TAB PO ×2 (14:18→21:36)
[2018-02-24] MEDS: IBUPROFEN 800 MG TAB PO (06:11)
[2018-02-24] MEDS: PRENATAL VITAMINS CHEWABLE TABLET PO (09:17)
[2018-02-24] MEDS: DOCUSATE SODIUM 100 MG CAP PO (09:17)
== END 2018-02-24 11:45 | disposition home or self-care (01) | DRG 540 ==
LOC: M LDO 18:06 → M LDI 19:46 → M OBS 02-22 12:32 → M LDI 20:35
PROC: 10D00Z1 Extraction of Products of Conception, Low, Open Approach (ICD-10-PCS; principal; 2018-02-20 09:27)
PROC: 3E0P7GC Introduction of Other Therapeutic Substance into Female Reproductive, Via Natural or Artificial Opening (ICD-10-PCS; 2018-02-20 09:27)
DX: O10.02 Pre-existing essential hypertension complicating childbirth (principal); Z3A.38 38 weeks gestation of pregnancy; O99.214 Obesity complicating childbirth; E66.01 Morbid (severe) obesity due to excess calories; Z68.43 Body mass index [BMI] 50.0-59.9, adult; O61.0 Failed medical induction of labor; Z37.0 Single live birth